=== PATIENT | female | born 1930 | race Caucasian/White ===

== ENCOUNTER 2020-08-15 16:02 | Outpatient (CLI) | payer MEDICARE | END 2020-08-15 16:03 | disposition critical access hospital (66) | LOC: EMS 16:02 | PROVIDERS: ATTEND Surgery | DX: R10.13 Epigastric pain (principal); R11.2 Nausea with vomiting, unspecified | CPT/HCPCS: A0425; A0427 ==

== ENCOUNTER 2020-08-15 17:13 | Emergency (ER) | payer MEDICARE, OTHER ==
[2020-08-15] MEDS ORDERED: PROMETHAZINE INJ 12.5 MG in SODIUM CHLORIDE 0.9% 50 ML IV STA (17:35)
[2020-08-15] MEDS ORDERED: SODIUM CHLORIDE 0.9% 1,000 ML IV STA ×2 (17:35→21:28)
--- NOTE | 2020-08-15 17:43 | ED Physician Documentation ---
History of Present Illness - Stated complaint Stated Complaint: N/V - Chief complaint Chief Complaint: Cardiac - History obtained from History obtained from: Patient, Family, EMS - History of Present Illness Timing: How many days ago Pain level max: 4 Pain level now: 3 - Additonal information Additional information: 89-year-old female presents to the emergency department with epigastric abdominal pain and vomiting today. Similar to prior issues with her right hiatal hernia. EMS gave 100 mcg of fentanyl on route. Worse with eating and drinking. Better with vomiting. She states all of the pain is epigastric. She does have mild dementia. No urinary symptoms. No diarrhea. No fever. No cough. No Covid symptoms. She is accompanied by her daughter. Review of Systems Ten Systems: 10 systems reviewed and negative Constitutional: denies: Fever, Chills Nose: denies: Rhinorrhea / runny nose, Congestion Respiratory: denies: Dyspnea, Cough GI: reports: Nausea, Vomiting. denies: Constipation Skin: denies: Rash Musculoskeletal: denies: Neck pain, Back pain Neurologic: denies: Headache PD PAST MEDICAL HISTORY - Past Medical History Past Medical History: Yes Cardiovascular: High cholesterol Neuro: Dementia Endocrine/Autoimmune: Type 2 diabetes - Past Surgical History Past Surgical History: No - Present Medications Home Medications: Ambulatory Orders Medication Instructions Recorded Confirmed Atenolol [Tenormin] 50 mg PO DAILY 08/15/20 08/15/20 Atorvastatin [Lipitor] 40 mg PO DAILY 08/15/20 08/15/20 Glimepiride [Amaryl] 4 mg PO DAILY 08/15/20 08/15/20 Omeprazole 20 mg PO DAILY 08/15/20 08/15/20 Terazosin [Hytrin] 5 mg PO DAILY 08/15/20 08/15/20 hydroCHLOROthiazide 50 mg PO DAILY 08/15/20 08/15/20 [Hydrochlorothiazide] metFORMIN [Glucophage] 500 mg PO BID 08/15/20 08/15/20 - Allergies Allergies/Adverse Reactions: Allergies Allergy/AdvReac Type Severity Reaction Status Date / Time erythromycin base Allergy Unknown Verified 08/15/20 17:39 iron Allergy Unknown Verified 08/15/20 17:39 Penicillins Allergy Unknown Verified 08/15/20 17:39 - Social History Does the pt smoke?: No Smoking Status: Never smoker Does the pt drink ETOH?: Yes ETOH Use: Wine Does the pt have substance abuse?: No - Immunizations Immunizations are current?: Yes - POLST Patient has POLST: No PD ED PE NORMAL - Vitals Vital signs reviewed: Yes - General General: Alert and oriented X 3, No acute distress - HEENT HEENT: Moist mucous membranes - Neck Neck: Supple, no meningeal sign - Cardiac Cardiac: RRR, Strong equal pulses - Respiratory Respiratory: No respiratory distress, Clear bilaterally - Abdomen Abdomen: Soft, Non distended, Other (mild TTP epigastric.) - Derm Derm: Warm and dry - Extremities Extremities: No edema - Neuro Neuro: Alert and oriented X 3 (mildly confused at times), No motor deficit, No sensory deficit - Psych Psych: Normal mood, Normal affect Results - Vitals Vitals: Vital Signs - 24 hr 08/15/20 08/15/20 08/15/20 17:17 17:23 18:00 Temperature 36.7 C 36.8 C Heart Rate 87 82 84 Respiratory 16 21 20 Rate Blood Pressure 212/88 H 208/92 H 206/80 H O2 Saturation 97 97 97 08/15/20 08/15/20 08/15/20 19:16 20:05 21:57 Temperature 36.8 C Heart Rate 83 83 73 Respiratory 17 18 20 Rate Blood Pressure 132/87 H 131/59 H 120/59 L O2 Saturation 97 97 97 Oxygen O2 Source Room air - EKG (time done) 1721 Rate: Rate (enter#) (86) Rhythm: NSR [place]: Normal Intervals: Normal NM QRS: Normal, LVH Ischemia: Normal ST segments - Labs Labs: Laboratory Tests 08/15/20 08/15/20 08/15/20 17:45 17:55 17:55 WBC 11.4 H RBC 4.21 Hgb 11.7 L Hct 37.7 MCV 89.5 MCH 27.8 MCHC 31.0 L RDW 13.4 Plt Count 285 MPV 10.0 Neut # (Auto) 9.8 H Lymph # (Auto) 0.9 L [place] # (Auto) 0.4 Eos # (Auto) 0.1 Baso # (Auto) 0.1 Absolute Nucleated RBC 0.00 Nucleated RBC % 0.0 Sodium 140 Potassium 4.6 Chloride 101 Carbon Dioxide 25 Anion Gap 14.0 H BUN 31 H Creatinine 1.6 H Estimated GFR (MDRD) 30 L Glucose 286 H Lactic Acid Calcium 8.9 Total Bilirubin 0.6 AST 16 ALT 13 Alkaline Phosphatase 114 Troponin I High Sens Total Protein 7.5 Albumin 3.9 Globulin 3.6 Albumin/Globulin Ratio 1.1 Lipase 41 Urine Color YELLOW Urine Clarity CLEAR Urine pH 6.5 Ur Specific [place] 1.020 Urine Protein TRACE Urine Glucose (UA) 500 H Urine Ketones NEGATIVE Urine Occult Blood TRACE-INTA Urine Nitrite NEGATIVE Urine Bilirubin NEGATIVE Urine Urobilinogen 0.2 (NORMAL) Ur Leukocyte Esterase MODERATE H Urine RBC 0-5 Urine WBC 4-5 Ur Squamous Epith Cells MOD Squamous H Urine Bacteria None Seen Ur Microscopic Review INDICATED Urine Culture Comments NOT INDICATED 08/15/20 08/15/20 08/15/20 17:55 20:18 20:29 WBC RBC Hgb Hct MCV MCH MCHC RDW Plt Count MPV Neut # (Auto) Lymph # (Auto) [place] # (Auto) Eos # (Auto) Baso # (Auto) Absolute Nucleated RBC Nucleated RBC % Sodium Potassium Chloride Carbon Dioxide Anion Gap BUN Creatinine Estimated GFR (MDRD) Glucose Lactic Acid 3.0 H* Calcium Total Bilirubin AST ALT Alkaline Phosphatase Troponin I High Sens 34.1 H* 36.0 H* Total Protein Albumin Globulin Albumin/Globulin Ratio Lipase Urine Color Urine Clarity Urine pH Ur Specific [place] Urine Protein Urine Glucose (UA) Urine Ketones Urine Occult Blood Urine Nitrite Urine Bilirubin Urine Urobilinogen Ur Leukocyte Esterase Urine RBC Urine WBC Ur Squamous Epith Cells Urine Bacteria Ur Microscopic Review Urine Culture Comments 08/15/20 22:29 WBC RBC Hgb Hct MCV MCH MCHC RDW Plt Count MPV Neut # (Auto) Lymph # (Auto) [place] # (Auto) Eos # (Auto) Baso # (Auto) Absolute Nucleated RBC Nucleated RBC % Sodium Potassium Chloride Carbon Dioxide Anion Gap BUN Creatinine Estimated GFR (MDRD) Glucose Lactic Acid 1.5 Calcium Total Bilirubin AST ALT Alkaline Phosphatase Troponin I High Sens Total Protein Albumin Globulin Albumin/Globulin Ratio Lipase Urine Color Urine Clarity Urine pH Ur Specific [place] Urine Protein Urine Glucose (UA) Urine Ketones Urine Occult Blood Urine Nitrite Urine Bilirubin Urine Urobilinogen Ur Leukocyte Esterase Urine RBC Urine WBC Ur Squamous Epith Cells Urine Bacteria Ur Microscopic Review Urine Culture Comments - Rads (name of study) CT abd/pelvis Radiology: Prelim report reviewed, EMP read contemporaneously, See rad report cxr Radiology: Prelim report reviewed, EMP read contemporaneously, See rad report (no acute abnormality) PD MEDICAL DECISION MAKING - ED course Complexity details: reviewed results, re-evaluated patient, considered differential, d/w patient, d/w family, d/w instructional design consultant ED course: Patient is an 89-year-old female with a history of hiatal hernia. She has intermittent vomiting and chest pain with this. There was inflammation surrounding the hernia on CT scan. I consulted general surgery, Dr. Angel. She recommends hydration, checking a lactate and monitoring the patient. The patient symptoms resolved while in the emergency department. She is tolerating p.o. without difficulty and has no further pain. Lactate is decreasing as well. We will have her follow-up with her doctor as an outpatient for further care. Patient counseled regarding signs and symptoms for which I believe and urgent re-evaluation would be necessary. Patient with good understanding of and agreement to plan and is comfortable going home at this time This document was made in part using voice recognition software. While efforts are made to proofread this document, sound alike and grammatical errors may occur. IMPRESSION: 1. Large sliding hiatal hernia with mild surrounding fat stranding, which could indicate inflammation or vascular compromise. 2. Normal appendix. 3. Coronary artery disease. Departure - Departure Disposition: 01 Home, Self Care Clinical Impression: Hiatal hernia Condition: Good Instructions: Hiatal Hernia Follow-Up: your,doctor in 1 week [Other] Comments: Follow-up with your doctor for further care. Return if you worsen. Drink plenty of water.
[2020-08-15 18:01] LABS: BILIRUBIN,URINE NEGATIVE (NEGATIVE); GLUCOSE, URINE (UA) 500 mg/dL (NEGATIVE); KETONES,URINE (UA) NEGATIVE (NEGATIVE); LEUKOCYTE ESTERASE, URINE MODERATE (NEGATIVE); NITRITE,URINE NEGATIVE (NEGATIVE); OCCULT BLOOD,URINE TRACE-INTA (NEGATIVE); PH,URINE 6.5 PH (5.0-7.5); PROTEIN,URINE TRACE mg/dL (NEGATIVE); UROBILINOGEN,URINE 0.2 (NORMAL) E.U./dL (NORMAL)
[2020-08-15 18:01] LABS: BASOPHILS # (AUTO) 0.1 10^3/uL (0.0-0.1); BASOPHILS % (AUTO) 0.9 %; EOSINOPHILS # (AUTO) 0.1 10^3/uL (0.0-0.7); EOSINOPHILS % (AUTO) 0.8 %; HGB - HEMOGLOBIN 11.7 g/dL (12.0-16.0); LYMPHOCYTES # (AUTO) 0.9 10^3/uL (1.5-3.5); LYMPHOCYTES % (AUTO) 8.3 %; MEAN CORPUSCULAR HEMOGLOBIN 27.8 pg (27.0-31.0); MEAN CORPUSCULAR VOLUME 89.5 fL (81.0-99.0); MONOCYTES # (AUTO) 0.4 10^3/uL (0.0-1.0); MONOCYTES % (AUTO) 3.8 %; NEUTROPHILS # (AUTO) 9.8 10^3/uL (1.5-6.6); NEUTROPHILS % (AUTO) 85.9 %; PLT - PLATELET COUNT 285 10^3/uL (130-450); RED BLOOD COUNT 4.21 10^6/uL (4.20-5.40); RED CELL DISTRIBUTION WIDTH 13.4 % (12.0-15.0); WHITE BLOOD COUNT 11.4 x10^3/uL (4.8-10.8)
[2020-08-15 18:05] LABS: CLARITY,URINE CLEAR (CLEAR)
[2020-08-15 18:15] LABS: BACTERIA,URINE None Seen /HPF (None Seen); RBC,URINE 0-5 /HPF (0-5); SQUAMOUS EPITHELIAL CELL,UR MOD Squamous (<= Few)
[2020-08-15 18:16] LABS: ALBUMIN 3.9 g/dL (3.2-5.5); ALBUMIN/GLOBULIN RATIO 1.1 (1.0-2.2); BILIRUBIN,TOTAL 0.6 mg/dL (0.2-1.0); CALCIUM 8.9 mg/dL (8.5-10.3); CREATININE 1.6 mg/dL (0.4-1.0); TOTAL PROTEIN 7.5 g/dL (6.7-8.2)
--- NOTE | 2020-08-15 18:25 | XRAY Report ---
PROCEDURE: Chest 1 View X-Ray INDICATIONS: chest pain TECHNIQUE: One view of the chest was acquired. COMPARISON: None FINDINGS: Surgical changes and devices: None. Lungs and pleura: No pleural effusions or pneumothorax. Lungs are clear. Mediastinum: Right pericardiac density is present, possibly indicating a large hiatal hernia or a per icardiac fat pad. Heart size is normal. Bones and chest wall: No suspicious bony lesions. Overlying soft tissues appear unremarkable. IMPRESSION: 1. No acute process. 2. Right paracardiac density, possibly indicating a hiatal hernia or paracardiac fat pad. Reviewed by: Andi Acosta MD on 08/15/2020 6:23 PM PST Approved by: Andi Acosta MD on 08/15/2020 6:23 PM PST Station ID: [id number]
--- NOTE | 2020-08-15 19:19 | CT Report ---
PROCEDURE: Abdomen/Pelvis WO INDICATIONS: vomiting, abd pain TECHNIQUE: Noncontrast 5 mm thick sections acquired from the diaphragms to the symphysis. 5 mm coronal and sagi ttal reformats were then performed. For radiation dose reduction, the following was used: automated exposure control, adjustment of mA and/or kV according to patient size. COMPARISON: None. FINDINGS: Image quality: Excellent. ABDOMEN: Lung bases: Lung bases are clear. Heart size is enlarged. There is calcification of the coronary va sculature. Solid organs: Liver and spleen are normal in size. Gallbladder Pancreas is normal in contours. No adrenal nodules. Kidneys are normal in size, without hydronephrosis or nephrolithiasis. Peritoneum and bowel: Large hiatal hernia is present, containing most of the stomach. There is mild fat stranding normal appendix. Unenhanced bowel loops demonstrate normal wall thickness and caliber. No free fluid or air. Nodes and vessels: No retroperitoneal or mesenteric adenopathy by size criteria. Aorta and inferior vena cava are normal in caliber. Miscellaneous: No ventral hernias. PELVIS: Genitourinary: Bladder wall thickness is normal. Miscellaneous: Fat-containing left inguinal hernia without bowel contents. Bones: No suspicious bony lesions. No surrounding the herniated stomach. Vertebral body compression fractures. IMPRESSION: 1. Large sliding hiatal hernia with mild surrounding fat stranding, which could indicate inflammation or vascular compromise. 2. Normal appendix. 3. Coronary artery disease. Reviewed by: Andi Acosta MD on 08/15/2020 7:18 PM PST Approved by: Andi Acosta MD on 08/15/2020 7:18 PM PST Station ID: [id number]
[2020-08-15 22:49] VITALS: BP 109/85
== END 2020-08-15 23:07 | disposition home or self-care (01) ==
LOC: ED 17:13
DX: K46.9 Unspecified abdominal hernia without obstruction or gangrene (principal); E11.9 Type 2 diabetes mellitus without complications; F03.90 Unspecified dementia, unspecified severity, without behavioral disturbance, psychotic disturbance, mood disturbance, and anxiety
CPT/HCPCS: 36415; 71045; 74176; 80053; 81001; 83605; 83690; 84484; 85025; 93005; 96361; 96365; 99284; J7040; 81003; 87086

== ENCOUNTER 2020-10-03 04:58 | Outpatient (CLI) | payer MEDICARE | END 2020-10-03 04:59 | disposition EMS.NT | LOC: EMS 04:58 | PROVIDERS: ATTEND Surgery | DX: R41.82 Altered mental status, unspecified (principal) ==

== ENCOUNTER 2020-11-16 08:00 | Outpatient (CLI) | payer MEDICARE ==
[2020-11-16 15:07] LABS: ALBUMIN 3.9 g/dL (3.2-5.5); ALKALINE PHOSPHATASE 66 IU/L (42-121); ALT ALANINE AMINOTRANSFERASE 16 IU/L (10-60); AST ASPARTATE AMINOTRANSFERASE 19 IU/L (10-42); BILIRUBIN,TOTAL 0.7 mg/dL (0.2-1.0); BUN - BLOOD UREA NITROGEN 39 mg/dL (6-20); CALCIUM 9.2 mg/dL (8.5-10.3); CARBON DIOXIDE - CO2 21 mmol/L (21-32); CHLORIDE 102 mmol/L (101-111); CREATININE 1.7 mg/dL (0.4-1.0); GFR - MDRD 28 (>89); GLUCOSE 142 mg/dL (70-100); POTASSIUM 4.2 mmol/L (3.5-5.0); SODIUM 136 mmol/L (135-145); TOTAL PROTEIN 7.3 g/dL (6.7-8.2)
[2020-11-16 15:35] LABS: BILIRUBIN,DIRECT < 0.1 mg/dL (0.1-0.5)
[2020-11-16 19:31] LABS: ESTIMATED AVERAGE GLUCOSE 140 mg/dL (70-100); HEMOGLOBIN A1c% 6.5 % (4.27-6.07)
== END 2020-11-16 23:59 | disposition home or self-care (01) ==
LOC: LAB.S 08:00
PROVIDERS: ATTEND Family Medicine
DX: E11.649 Type 2 diabetes mellitus with hypoglycemia without coma (principal); E11.22 Type 2 diabetes mellitus with diabetic chronic kidney disease; N18.9 Chronic kidney disease, unspecified
CPT/HCPCS: 80048; 80076; 82043; 82570; 83036; 83970

== ENCOUNTER 2020-11-24 22:00 | Outpatient (CLI) | payer MEDICARE ==
[2020-11-24 15:29] LABS: BILIRUBIN,URINE NEGATIVE (NEGATIVE); GLUCOSE, URINE (UA) NEGATIVE (NEGATIVE); KETONES,URINE (UA) NEGATIVE (NEGATIVE); LEUKOCYTE ESTERASE, URINE NEGATIVE (NEGATIVE); NITRITE,URINE NEGATIVE (NEGATIVE); OCCULT BLOOD,URINE NEGATIVE (NEGATIVE); PROTEIN,URINE NEGATIVE (NEGATIVE); UROBILINOGEN,URINE 0.2 (NORMAL) E.U./dL (NORMAL)
[2020-11-24 15:33] LABS: CLARITY,URINE CLEAR (CLEAR)
== END 2020-11-24 23:59 | disposition home or self-care (01) ==
LOC: LAB.R 22:00
PROVIDERS: ATTEND Family Medicine
DX: N18.9 Chronic kidney disease, unspecified (principal)
CPT/HCPCS: 81001; 81003

== ENCOUNTER 2021-01-14 11:16 | Outpatient (CLI) | payer MEDICARE ==
[2021-01-14 15:35] LABS: BASOPHILS # (AUTO) 0.2 10^3/uL (0.0-0.1); BASOPHILS % (AUTO) 1.8 %; EOSINOPHILS # (AUTO) 0.4 10^3/uL (0.0-0.7); EOSINOPHILS % (AUTO) 4.8 %; HCT - HEMATOCRIT 29.6 % (37.0-47.0); HGB - HEMOGLOBIN 8.5 g/dL (12.0-16.0); LYMPHOCYTES # (AUTO) 1.7 10^3/uL (1.5-3.5); LYMPHOCYTES % (AUTO) 19.7 %; MEAN CORPUSCULAR HEMOGLOBIN 26.2 pg (27.0-31.0); MEAN CORPUSCULAR HGB CONC 28.7 g/dL (32.0-36.0); MEAN CORPUSCULAR VOLUME 91.4 fL (81.0-99.0); MEAN PLATELET VOLUME 10.4 fL (7.9-10.8); MONOCYTES # (AUTO) 0.6 10^3/uL (0.0-1.0); NEUTROPHILS # (AUTO) 5.7 10^3/uL (1.5-6.6); NEUTROPHILS % (AUTO) 66.3 %; PLT - PLATELET COUNT 346 10^3/uL (130-450); RED BLOOD COUNT 3.24 10^6/uL (4.20-5.40); RED CELL DISTRIBUTION WIDTH 14.7 % (12.0-15.0); WHITE BLOOD COUNT 8.5 x10^3/uL (4.8-10.8)
[2021-01-14 15:46] LABS: SLIDE REVIEW? Indicated
[2021-01-14 16:04] LABS: PLATELET ESTIMATE, MANUAL NORMAL (130-450,000) (NORMAL); PLATELET MORPHOLOGY NORMAL APPEARANCE (NORMAL)
[2021-01-14 16:07] LABS: CALCIUM 8.6 mg/dL (8.5-10.3); CREATININE 1.5 mg/dL (0.4-1.0)
== END 2021-01-14 11:17 | disposition home or self-care (01) ==
LOC: LAB.S 11:16
DX: N18.4 Chronic kidney disease, stage 4 (severe) (principal); Z86.2 Personal history of diseases of the blood and blood-forming organs and certain disorders involving the immune mechanism
CPT/HCPCS: 36415; 80048; 81599; 82310; 83540; 83970; 84466; 85025

== ENCOUNTER 2021-02-18 17:44 | Emergency (ER) | payer MEDICARE ==
[2021-02-18 18:30] LABS: BASOPHILS # (AUTO) 0.1 10^3/uL (0.0-0.1); BASOPHILS % (AUTO) 1.3 %; EOSINOPHILS # (AUTO) 0.3 10^3/uL (0.0-0.7); EOSINOPHILS % (AUTO) 2.7 %; HCT - HEMATOCRIT 33.6 % (37.0-47.0); HGB - HEMOGLOBIN 9.7 g/dL (12.0-16.0); LYMPHOCYTES # (AUTO) 1.4 10^3/uL (1.5-3.5); LYMPHOCYTES % (AUTO) 13.9 %; MEAN CORPUSCULAR HGB CONC 28.9 g/dL (32.0-36.0); MEAN CORPUSCULAR VOLUME 90.1 fL (81.0-99.0); MONOCYTES # (AUTO) 0.7 10^3/uL (0.0-1.0); MONOCYTES % (AUTO) 7.4 %; NEUTROPHILS # (AUTO) 7.4 10^3/uL (1.5-6.6); NEUTROPHILS % (AUTO) 74.5 %; PLT - PLATELET COUNT 331 10^3/uL (130-450); RED BLOOD COUNT 3.73 10^6/uL (4.20-5.40); RED CELL DISTRIBUTION WIDTH 14.9 % (12.0-15.0)
--- NOTE | 2021-02-18 18:39 | XRAY Report ---
PROCEDURE: Chest 1 View X-Ray INDICATIONS: Chest Pain TECHNIQUE: One view of the chest was acquired. COMPARISON: 08/15/2020 FINDINGS: Surgical changes and devices: None. Lungs and pleura: No pleural effusions or pneumothorax. Mild pulmonary vascular congestion is seen. Mild pulmonary edema is also likely present. Mediastinum: Mediastinal contours appear normal. Heart size is enlarged. Bones and chest wall: No suspicious bony lesions. Overlying soft tissues appear unremarkable. IMPRESSION: Cardiomegaly and mild pulmonary vascular congestion. No focal infiltrate, pleural effusion or pneumot horax. Reviewed by: Maxx Chauhan MD on 02/18/2021 6:38 PM PDT Approved by: Maxx Chauhan MD on 02/18/2021 6:38 PM PDT Station ID: [id number]
--- NOTE | 2021-02-18 18:45 | ED Physician Documentation ---
History of Present Illness - Stated complaint Stated Complaint: SOA - Chief complaint Chief Complaint: Resp - History obtained from History obtained from: Patient, Family - History of Present Illness Timing: Today Pain level max: 0 Pain level now: 0 - Additonal information Additional information: Is an 89-year-old female who presents to the emergency department with 2 hours of shortness of breath. She states that it started at rest when she was at home. She states she currently is feeling better. It was worse with movement, nothing made it better. She states that she did lay down and take a nap but still felt mildly short of breath. No chest pain. No fevers. No chills. She was recently started on iron pills for anemia. Has had no leg swelling. No calf pain. Review of Systems Constitutional: denies: Fever, Chills GI: denies: Vomiting, Diarrhea Skin: denies: Rash Musculoskeletal: denies: Neck pain, Back pain Neurologic: denies: Headache PD PAST MEDICAL HISTORY - Past Medical History Past Medical History: Yes Cardiovascular: Hypertension, High cholesterol, Murmur Respiratory: None Neuro: Dementia Endocrine/Autoimmune: Type 2 diabetes GI: GERD, Hiatal hernia CLINICAL RESEARCH ADMINISTRATOR: None : None HEENT: None Psych: None Musculoskeletal: Osteoarthritis Derm: None - Past Surgical History Past Surgical History: No - Present Medications Home Medications: Ambulatory Orders Medication Instructions Recorded Confirmed Atorvastatin [Lipitor] 40 mg PO DAILY 08/15/20 08/15/20 Omeprazole 20 mg PO DAILY 08/15/20 02/18/21 Terazosin [Hytrin] 5 mg PO HS 08/15/20 02/18/21 Enalapril Maleate [Vasotec] 20 mg PO BID 02/18/21 02/18/21 Ferrous Gluconate 324 mg PO DAILY 02/18/21 02/18/21 Furosemide [Lasix] 20 mg PO DAILY #7 tablet 02/18/21 Multivitamin W/Minerals [Theragran 1 each PO DAILY 02/18/21 02/18/21 M] - Allergies Allergies/Adverse Reactions: Allergies Allergy/AdvReac Type Severity Reaction Status Date / Time erythromycin base Allergy Unknown Verified 02/18/21 17:52 iron Allergy Unknown Verified 02/18/21 17:52 Penicillins Allergy Unknown Verified 02/18/21 17:52 - Social History Does the pt smoke?: No Smoking Status: Never smoker Does the pt drink ETOH?: Yes Does the pt have substance abuse?: No Substance Use and Type: CBD oil / Products - Immunizations Immunizations are current?: Yes - POLST Patient has POLST: No PD ED PE NORMAL - Vitals Vital signs reviewed: Yes - General General: Alert and oriented X 3, No acute distress - HEENT HEENT: PERRL, Moist mucous membranes - Neck Neck: Supple, no meningeal sign - Cardiac Cardiac: RRR, Strong equal pulses, Other (Harsh murmur consistent with aortic stenosis) - Respiratory Respiratory: No respiratory distress, Clear bilaterally - Abdomen Abdomen: Soft, Non tender, Non distended - Derm Derm: Warm and dry - Extremities Extremities: No edema, No calf tenderness / cord - Neuro Neuro: Alert and oriented X 3 (Mild confusion at times) - Psych Psych: Normal mood, Normal affect Results - Vitals Vitals: Vital Signs - 24 hr 02/18/21 02/18/21 02/18/21 17:48 18:39 20:00 Temperature 36.1 C L Heart Rate 90 82 88 Respiratory 16 18 17 Rate Blood Pressure 141/72 H 142/72 H 144/70 H O2 Saturation 95 96 95 Oxygen O2 Source Room air - EKG (time done) 1802 Rate: Rate (enter#) (82) Rhythm: NSR [place]: Normal Intervals: Normal IA, LBBB - Labs Labs: Laboratory Tests 02/18/21 02/18/21 02/18/21 18:20 18:20 18:20 WBC 10.0 RBC 3.73 L Hgb 9.7 L Hct 33.6 L MCV 90.1 MCH 26.0 L MCHC 28.9 L RDW 14.9 Plt Count 331 MPV 10.0 Neut # (Auto) 7.4 H Lymph # (Auto) 1.4 L [place] # (Auto) 0.7 Eos # (Auto) 0.3 Baso # (Auto) 0.1 Absolute Nucleated RBC 0.00 Nucleated RBC % 0.0 WBC Morphology NORMAL APPEARANCE Platelet Estimate NORMAL (130-450,000) Platelet Morphology NORMAL APPEARANCE RBC Morph Micro Appear 2+ HYPOCHROMASIA Sodium 135 Potassium 4.0 Chloride 104 Carbon Dioxide 25 Anion Gap 6.0 BUN 43 H Creatinine 1.5 H Estimated GFR (MDRD) 33 L Glucose 189 H Calcium 8.7 Total Bilirubin 0.6 AST 17 ALT 12 Alkaline Phosphatase 88 Troponin I High Sens 49.0 H* B-Natriuretic Peptide Total Protein 6.8 Albumin 3.7 Globulin 3.1 Albumin/Globulin Ratio 1.2 Lipase 52 H 02/18/21 02/18/21 19:25 20:27 WBC RBC Hgb Hct MCV MCH MCHC RDW Plt Count MPV Neut # (Auto) Lymph # (Auto) [place] # (Auto) Eos # (Auto) Baso # (Auto) Absolute Nucleated RBC Nucleated RBC % WBC Morphology Platelet Estimate Platelet Morphology RBC Morph Micro Appear Sodium Potassium Chloride Carbon Dioxide Anion Gap BUN Creatinine Estimated GFR (MDRD) Glucose Calcium Total Bilirubin AST ALT Alkaline Phosphatase Troponin I High Sens 65.3 H* B-Natriuretic Peptide 359 H Total Protein Albumin Globulin Albumin/Globulin Ratio Lipase - Rads (name of study) cxr Radiology: Prelim report reviewed, EMP read contemporaneously, See rad report (Cardiomegaly and mild pulmonary vascular congestion. No focal infiltrate, pleural effusion or pneumothorax. ) PD MEDICAL DECISION MAKING - ED course Complexity details: reviewed results, re-evaluated patient, considered differential, d/w patient, d/w senior analytic consultant ED course: Patient feels much better after a dose of Lasix. Has a very minimal high-sensitivity troponin elevation, does not want to stay in the hospital tonight. I do think she needs a repeat echocardiogram to check on her known aortic stenosis and to see what her cardiac function is. They will follow up with [facility] doctor [facility] for [facility]. Patient is not hypoxic here. Has no chest pain. No further dyspnea. Offered observation versus transfer for further cardiac care, patient and family do not want to stay, they will go home and follow-up closely with her doctor. They will return if she worsens in any way. Patient and family counseled regarding signs and symptoms for which I believe and urgent re-evaluation would be necessary. Patient with good understanding of and agreement to plan and is comfortable going home at this time This document was made in part using voice recognition software. While efforts are made to proofread this document, sound alike and grammatical errors may occur. Departure - Departure Disposition: Home, Self Care Clinical Impression: Congestive heart failure Qualifiers: Heart failure type: unspecified Heart failure chronicity: unspecified Qualified Code(s): I50.9 - Heart failure, unspecified Pulmonary edema Qualifiers: Chronicity: acute Qualified Code(s): J81.0 - Acute pulmonary edema Aortic stenosis Qualifiers: Cardiac valve disease etiology: etiology unspecified Qualified Code(s): I35.0 - Nonrheumatic aortic (valve) stenosis Condition: Good Instructions: ED CHF General, Heart Valve Stenosis, TAVR Follow-Up: EVELIO MONROE MD [Primary Care Provider] - DAX ALONSO MD [Physician No Access] - Prescriptions: Furosemide [Lasix] 20 mg PO DAILY #7 tablet Comments: Please follow-up with your primary care doctor on Saturday. You need to have a repeat echocardiogram. You should be referred to a wirer passenger car as well. You likely need your aortic valve replaced sooner rather than later as it does appear to be causing heart failure now. Return if you worsen.
[2021-02-18 18:50] LABS: ALBUMIN 3.7 g/dL (3.2-5.5); ALBUMIN/GLOBULIN RATIO 1.2 (1.0-2.2); BILIRUBIN,TOTAL 0.6 mg/dL (0.2-1.0); CALCIUM 8.7 mg/dL (8.5-10.3); CREATININE 1.5 mg/dL (0.4-1.0); TOTAL PROTEIN 6.8 g/dL (6.7-8.2)
[2021-02-18 18:59] LABS: PLATELET ESTIMATE, MANUAL NORMAL (130-450,000) (NORMAL); PLATELET MORPHOLOGY NORMAL APPEARANCE (NORMAL)
[2021-02-18 19:00] LABS: WBC MORPHOLOGY (MULTIPLE) NORMAL APPEARANCE (NORMAL)
[2021-02-18] MEDS ORDERED: FUROSEMIDE 40 MG/4 ML VIAL IVP STA (19:48)
[2021-02-18 22:29] LABS: B. PARAPERTUSSIS- RESP PCR PAN NOT DETECTED; B. PERTUSSIS- RESP PCR PANEL NOT DETECTED; C. PNEUMONIAE- RESP PCR PANEL NOT DETECTED; CORONAVIRUS 229E-RESP PCR NOT DETECTED; CORONAVIRUS HKU1-RESP PCR NOT DETECTED; CORONAVIRUS NL63-RESP PCR NOT DETECTED; CORONAVIRUS OC43-RESP PCR NOT DETECTED; HUMAN METAPNEUMOVIRUS NOT DETECTED; INFLUENZA A- RESP PCR PANEL NOT DETECTED; INFLUENZA B - RESP PCR PANEL NOT DETECTED; M. PNEUMONIAE- RESP PCR PANEL NOT DETECTED; PARAINFLUENZA VIRUS 1 NOT DETECTED; PARAINFLUENZA VIRUS 2 NOT DETECTED; PARAINFLUENZA VIRUS 3 NOT DETECTED; PARAINFLUENZA VIRUS 4 NOT DETECTED; RHINOVIRUS/ENTEROVIRUS NOT DETECTED; RSV- RESP PCR PANEL NOT DETECTED; SARS-CoV-2 -RESP PCR PANEL NOT DETECTED
[2021-02-18 22:35] VITALS: BP 161/68
== END 2021-02-18 22:25 | disposition home or self-care (01) ==
LOC: ED 17:44
DX: I50.9 Heart failure, unspecified (principal); I35.0 Nonrheumatic aortic (valve) stenosis; I11.0 Hypertensive heart disease with heart failure; I50.1 Left ventricular failure, unspecified; I44.7 Left bundle-branch block, unspecified; E11.9 Type 2 diabetes mellitus without complications; Z20.822 Contact with and (suspected) exposure to COVID-19
CPT/HCPCS: 0202U; 36415; 80053; 83690; 83880; 84484; 85025; 93005; 96374; 99284

== ENCOUNTER 2021-03-27 12:01 | Outpatient (CLI) | payer MEDICARE, OTHER ==
[2021-03-27 15:44] LABS: CALCIUM 8.9 mg/dL (8.5-10.3); CREATININE 1.5 mg/dL (0.4-1.0); POTASSIUM 3.8 mmol/L (3.5-5.0)
== END 2021-03-27 12:02 | disposition home or self-care (01) ==
LOC: LAB.S 12:01
PROVIDERS: ATTEND Internal Medicine Nephrology
DX: N18.32 Chronic kidney disease, stage 3b (principal)
CPT/HCPCS: 36415; 80048

== ENCOUNTER 2021-04-01 21:11 | Outpatient (CLI) | payer MEDICARE, OTHER | END 2021-04-01 21:12 | disposition critical access hospital (66) | LOC: EMS 21:11 | DX: R10.9 Unspecified abdominal pain (principal); R11.10 Vomiting, unspecified | CPT/HCPCS: A0425; A0427 ==

== ENCOUNTER 2021-04-01 21:47 | Emergency (ER) | payer MEDICARE, OTHER ==
[2021-04-01 22:22] LABS: BASOPHILS # (AUTO) 0.2 10^3/uL (0.0-0.1); EOSINOPHILS # (AUTO) 0.1 10^3/uL (0.0-0.7); EOSINOPHILS % (AUTO) 0.3 %; HCT - HEMATOCRIT 33.1 % (37.0-47.0); LYMPHOCYTES # (AUTO) 1.3 10^3/uL (1.5-3.5); LYMPHOCYTES % (AUTO) 7.8 %; MEAN CORPUSCULAR HEMOGLOBIN 26.4 pg (27.0-31.0); MEAN CORPUSCULAR HGB CONC 30.2 g/dL (32.0-36.0); MEAN CORPUSCULAR VOLUME 87.3 fL (81.0-99.0); MONOCYTES # (AUTO) 0.5 10^3/uL (0.0-1.0); MONOCYTES % (AUTO) 3.4 %; NEUTROPHILS # (AUTO) 14.1 10^3/uL (1.5-6.6); NEUTROPHILS % (AUTO) 87.3 %; PLT - PLATELET COUNT 293 10^3/uL (130-450); RED BLOOD COUNT 3.79 10^6/uL (4.20-5.40); RED CELL DISTRIBUTION WIDTH 14.2 % (12.0-15.0); WHITE BLOOD COUNT 16.1 x10^3/uL (4.8-10.8)
[2021-04-01 22:35] LABS: ALBUMIN/GLOBULIN RATIO 1.2 (1.0-2.2); BILIRUBIN,TOTAL 0.8 mg/dL (0.2-1.0); CALCIUM 9.3 mg/dL (8.5-10.3); CREATININE 1.6 mg/dL (0.4-1.0); POTASSIUM 3.9 mmol/L (3.5-5.0); TOTAL PROTEIN 7.4 g/dL (6.7-8.2)
--- NOTE | 2021-04-01 22:47 | ED Physician Documentation ---
PD HPI ABD PAIN - Stated complaint Stated Complaint: ABD PX/ N/V - Chief complaint Chief Complaint: Abd Pain - History obtained from History obtained from: Patient, Family (daughter (in ED at bedside)) - History of Present Illness Timing - onset: Today Timing - details: Gradual onset Quality: Pain Location: All over / everywhere Associated symptoms: Nausea, Vomiting (f) - Additional information Additional information: BIBA for abdominal pain, nausea/vomiting. patient has mild dementia. pain started 1-2 hours [employer]; patient denies vomiting on my HPI, but daughter (in ED at bedside) says patient has had vomiting both en route and in ED while awaiting evaluation. Review of Systems Constitutional: denies: Fever Cardiac: reports: Reviewed and negative Respiratory: reports: Reviewed and negative GI: reports: Abdominal Pain, Vomiting : denies: Dysuria, Frequency PD PAST MEDICAL HISTORY - Past Medical History Cardiovascular: Hypertension, High cholesterol, Murmur, Other Respiratory: None Neuro: Dementia Endocrine/Autoimmune: Type 2 diabetes GI: GERD, Hiatal hernia [employer] TEACHER: None : None HEENT: None Psych: None Musculoskeletal: Osteoarthritis Derm: None Other Past Medical History: aortic stenosis - Past Surgical History Past Surgical History: No - Present Medications Home Medications: Ambulatory Orders Medication Instructions Recorded Confirmed Atorvastatin [Lipitor] 40 mg PO DAILY 08/15/20 04/01/21 Omeprazole 20 mg PO DAILY 08/15/20 04/01/21 Terazosin [Hytrin] 5 mg PO HS 08/15/20 04/01/21 Enalapril Maleate [Vasotec] 20 mg PO BID 02/18/21 04/01/21 Ferrous Gluconate 324 mg PO DAILY 02/18/21 04/01/21 Furosemide [Lasix] 20 mg PO DAILY #7 tablet 02/18/21 04/01/21 Multivitamin W/Minerals [Theragran 1 each PO DAILY 02/18/21 04/01/21 M] - Allergies Allergies/Adverse Reactions: Allergies Allergy/AdvReac Type Severity Reaction Status Date / Time erythromycin base Allergy Unknown Verified 04/01/21 22:03 iron Allergy Unknown Verified 04/01/21 22:03 Penicillins Allergy Unknown Verified 04/01/21 22:03 - Social History Does the pt smoke?: No Smoking Status: Never smoker Does the pt drink ETOH?: Yes Does the pt have substance abuse?: No - Immunizations Immunizations are current?: Yes - POLST Patient has POLST: No PD ED PE NORMAL - Vitals Vital signs reviewed: Yes - General General: No acute distress, Well developed/nourished, Other (AAOx2) - HEENT HEENT: Moist mucous membranes - Neck Neck: Supple, no meningeal sign - Cardiac Cardiac: RRR - Respiratory Respiratory: No respiratory distress, Clear bilaterally - Abdomen Abdomen: Normal bowel sounds, Soft, Non tender, Non distended - Derm Derm: Normal color, Warm and dry PD ED PE EXPANDED - Cardiac Cardiac: Regular Rhythm, Murmur Present (3/6 HARMONY greatest at cardiac base) Results - Vitals Vitals: Oxygen O2 Source Room air - Labs Labs: Microbiology 04/02/21 00:11 Urine Culture - Final Urine,Clean Catch 10-50,000 COLONIES/ML Polymicrobial growth including potential pathogens. This is suggestive of skin or other contamination. Laboratory Tests 04/01/21 04/01/21 04/02/21 22:19 22:19 00:11 WBC 16.1 H RBC 3.79 L Hgb 10.0 L Hct 33.1 L MCV 87.3 MCH 26.4 L MCHC 30.2 L RDW 14.2 Plt Count 293 MPV 10.0 Neut # (Auto) 14.1 H Lymph # (Auto) 1.3 L [place] # (Auto) 0.5 Eos # (Auto) 0.1 Baso # (Auto) 0.2 H Absolute Nucleated RBC 0.00 Nucleated RBC % 0.0 Sodium 137 Potassium 3.9 Chloride 100 L Carbon Dioxide 23 Anion Gap 14.0 H BUN 40 H Creatinine 1.6 H Estimated GFR (MDRD) 30 L Glucose 261 H Calcium 9.3 Total Bilirubin 0.8 AST 20 ALT 13 Alkaline Phosphatase 86 Total Protein 7.4 Albumin 4.0 Globulin 3.4 Albumin/Globulin Ratio 1.2 Lipase 62 H Urine Color YELLOW Urine Clarity CLEAR Urine pH 5.5 Ur Specific [place] 1.015 Urine Protein TRACE Urine Glucose (UA) 500 H Urine Ketones TRACE Urine Occult Blood TRACE-INTA Urine Nitrite NEGATIVE Urine Bilirubin NEGATIVE Urine Urobilinogen 0.2 (NORMAL) Ur Leukocyte Esterase TRACE H Urine RBC 0-5 Urine WBC 4-5 Ur Squamous Epith Cells FEW Squamous Urine Bacteria Few Ur Microscopic Review INDICATED Urine Culture Comments INDICATED - Rads (name of study) CT A/P Radiology: Prelim report reviewed, See rad report PD MEDICAL DECISION MAKING - ED course Complexity details: reviewed old records, reviewed results, re-evaluated patient, considered differential, d/w patient, d/w family ED course: patient c/o increasing pain during most of ED stay, correlating with appearing to be in gradually increasing discomfort despite dosing with IV morphine. CT A/P interpreted by radiologist as gastric volvulus with possible obstruction. While awaiting CT results, patient had episode of emesis and reported resolution of her pain, and appeared to be comfortable/NAD after vomiting. She remained in NAD for remainder of ED stay and was sleeping, though easily awoken to voice, on subsequent reevaluations. I discussed this case and test results, including CT, with Dr. Hugo ([employer] surgery). Bowel ischemia and/or obstruction would be unlikely at this point give n the complete resolution of symptoms after vomiting, and he recommends d/c home with close follow up for consideration of options to address her hiatal hernia. Per patients daughter, patient is currently undergoing outpatient testing as a means to clear her for aortic valve replacement. Departure - Departure Disposition: 01 Home, Self Care Clinical Impression: Hiatal hernia Aortic stenosis Qualifiers: Cardiac valve disease etiology: etiology unspecified Qualified Code(s): I35.0 - Nonrheumatic aortic (valve) stenosis Condition: Good Instructions: Hiatal Hernia Follow-Up: EVELIO MONROE MD [Primary Care Provider] - (Call tomorrow to arrange for next available appointment) Discharge Date/Time: 04/02/21 05:10
[2021-04-01] MEDS ORDERED: ONDANSETRON 4 MG/2 ML VIAL IVP STA (23:07)
[2021-04-01] MEDS ORDERED: IOVERSOL 320 50 ML VIAL ONE (23:11)
[2021-04-01] MEDS ORDERED: IOVERSOL 320 50 ML VIAL PO ONE (23:20)
[2021-04-02 00:25] LABS: BILIRUBIN,URINE NEGATIVE (NEGATIVE); GLUCOSE, URINE (UA) 500 mg/dL (NEGATIVE); KETONES,URINE (UA) TRACE mg/dL (NEGATIVE); LEUKOCYTE ESTERASE, URINE TRACE (NEGATIVE); NITRITE,URINE NEGATIVE (NEGATIVE); OCCULT BLOOD,URINE TRACE-INTA (NEGATIVE); PH,URINE 5.5 PH (5.0-7.5); PROTEIN,URINE TRACE mg/dL (NEGATIVE); UROBILINOGEN,URINE 0.2 (NORMAL) E.U./dL (NORMAL)
[2021-04-02] MEDS ORDERED: ONDANSETRON 4 MG/2 ML VIAL IVP STA (00:30)
[2021-04-02 00:37] LABS: BACTERIA,URINE Few /HPF (None Seen); CLARITY,URINE CLEAR (CLEAR); RBC,URINE 0-5 /HPF (0-5); SQUAMOUS EPITHELIAL CELL,UR FEW Squamous (<= Few)
[2021-04-02] MEDS ORDERED: MORPHINE 2 MG/ML CARPUJECT IVP STA ×2 (00:38→01:52)
[2021-04-02 05:22] VITALS: BP 161/81
--- NOTE | 2021-04-02 10:54 | CT Report ---
PROCEDURE: Abdomen/Pelvis WO INDICATIONS: abdominal pain, n/v TECHNIQUE: Noncontrast 5 mm thick sections acquired from the diaphragms to the symphysis. 5 mm coronal and sagi ttal reformats were then performed. For radiation dose reduction, the following was used: automated exposure control, adjustment of mA and/or kV according to patient size. COMPARISON: CT dated 08/15/2020 FINDINGS: Image quality: Excellent. ABDOMEN: Lung bases: Large paraesophageal hiatal hernia. Hernia contains most of the stomach, as before. Hear t size is enlarged. Compressive atelectasis within the right lower lobe. Calcification of the coronar y vasculature. Solid organs: Liver and spleen are normal in size. Gallbladder is grossly unremarkable Pancreas is normal in contours. No adrenal nodules. Kidneys are normal in size, without hydronephrosis or neph rolithiasis. Peritoneum and bowel: There is moderate gastric dilatation. Organoaxial volvulus is present. Orally a dministered contrast does not extend significantly into the duodenum. No free fluid or air. Nodes and vessels: No retroperitoneal or mesenteric adenopathy by size criteria. Aorta and inferior vena cava are normal in caliber. Miscellaneous: No ventral hernias. PELVIS: Genitourinary: Bladder wall thickness is normal. Miscellaneous: No inguinal hernias or adenopathy. Bones: No suspicious bony lesions. No vertebral body compression fractures. IMPRESSION: 1. 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 2. Coronary artery disease. 3. Concordant with preliminary interpretation. Reviewed by: Andi Acosta MD on 04/02/2021 9:53 AM JEFF Approved by: Andi Acosta MD on 04/02/2021 9:53 AM JEFF Station ID: [id number]
== END 2021-04-02 05:10 | disposition home or self-care (01) ==
LOC: EDUNIT# → ED 21:47
DX: K44.9 Diaphragmatic hernia without obstruction or gangrene (principal); I35.0 Nonrheumatic aortic (valve) stenosis; F03.90 Unspecified dementia, unspecified severity, without behavioral disturbance, psychotic disturbance, mood disturbance, and anxiety; I10 Essential (primary) hypertension; E11.9 Type 2 diabetes mellitus without complications
CPT/HCPCS: 36415; 80053; 81001; 81003; 83690; 85025; 87086; 96374; 96375; 96376; 99284

== ENCOUNTER 2021-05-11 11:13 | Outpatient (CLI) | payer MEDICARE, OTHER ==
[2021-05-11 15:41] LABS: % IRON SATURATION 49 % (20-50); IRON 172 ug/dL (28-170); TOTAL IRON BINDING CAPACITY 350 ug/dL (250-450); TRANSFERRIN 250 mg/dL (192-382)
== END 2021-05-11 11:14 | disposition home or self-care (01) ==
LOC: LAB.S 11:13
PROVIDERS: ATTEND Anesthesiology
DX: D64.9 Anemia, unspecified (principal)
CPT/HCPCS: 36415; 82728; 83540; 84466; 85014